=== PATIENT | female | born 1980 | race African-American/Black ===

== ENCOUNTER → 2016-09-02 | Outpatient (CLI) | payer OTHER ==
[~2016-09-02] MED LIST: ALBUTEROL17 GM INH; ALLERGY RELIEF10 M6 PO; AZELASTINE205.5 MCG/ INH; BENADRYL ALLERG25 M1 PO; EPIPEN JR0.15 MG/01 INJ; NORVASC PO; SERTRALINE HCL100 M1 PO; ZESTORETIC 10-1 EAC1
--- NOTE | ~2016-09-02 | CR63 ---
[facility] A Service of [facility] & [facility] RADIOLOGY TEXT RESULTS PATIENT: SEAN BROWNLEE LOCATION: [facility] : 78 UNIT #: [id number] AGE: [address]: Barry Martínez III, MD SEX: F ORDER DR: [id number] [facility] [address]. [place], [place] [address] [id number] O MR#: [id number] Acc #: [id number] NAME: SEAN BROWNLEE : 1980 SEX: F STUDY DATE/TIME: 09/02/2016 9:01 UNIT: [facility] ROOM: STUDY DESCRIPTION: CR Chest 2 View Attending Physician: Barry Martínez III, M.D. Referring Physician: Barry Martínez III, M.D. Ordering Physician: Barry Martínez III, M.D. Primary Care Physician: Generic Doctor Not In System MEDICAL IMAGING REPORT This report is preliminary unless electronic signature is present EXAM Chest, 09/02/2016 HISTORY 35-year-old woman preop clearance for laparoscopic adjustable gastric band placement and possible periesophageal hernia repair. Morbid obesity. COMPARISON None FINDINGS Two-view chest demonstrates normal cardiac size and configuration. Hilar structures and mediastinal contours are preserved. Bilateral lungs are expanded and clear. Large body habitus noted. IMPRESSION Negative chest. Large body habitus. Dictated by... Jagjit Sanchez M.D. THIS IS AN ELECTRONICALLY VERIFIED REPORT Jagjit Sanchez M.D. at 09/02/2016 12:01 PM Pilo TD: 09/02/2016 11:16 JOB #: [id number] MEDICAL IMAGING REPORT Page 1 of 1 COPY
--- NOTE | ~2016-09-02 | EKG ---
PATIENT: SEAN BROWNLEE UNIT #: [id number] Ventricular Rate: 74 BPM Atrial Rate: 74 BPM P-R Interval: 120 ms QRS Duration: 74 ms Q-T Interval: 388 ms QTC Calculation(Bezet): 430 ms P [place]: 11 degrees Calculated R [place]: 37 degrees Calculated T [place]: 12 degrees Diagnosis Line: Normal sinus rhythm Diagnosis Line: Normal ECG Diagnosis Line: No previous ECGs available Diagnosis Line: Confirmed by CINDY CARRERO MD ([id number]) on Diagnosis Line: 09/04/2016 11:13:59 PM INTERPRETING MD: MAGAN FRANZ
--- NOTE | ~2016-09-02 | CR97 ---
[facility] A Service of [facility] & [facility] RADIOLOGY TEXT RESULTS PATIENT: SEAN BROWNLEE LOCATION: [facility] : 78 UNIT #: [id number] AGE: [address]: Barry Martínez III, MD SEX: F ORDER DR: [id number] [facility] [address] [place], [place] [address] [id number] O MR#: [id number] Acc #: [id number] NAME: SEAN BROWNLEE : 1980 SEX: F STUDY DATE/TIME: 09/02/2016 9:11 UNIT: [facility] ROOM: STUDY DESCRIPTION: CR Esophagram Attending Physician: Barry Martínez III, M.D. Referring Physician: Barry Martínez III, M.D. Ordering Physician: Barry Martínez III, M.D. Primary Care Physician: Generic Doctor Not In System MEDICAL IMAGING REPORT This report is preliminary unless electronic signature is present EXAM Barium esophagram. INDICATIONS Morbid obesity. Preop for Lap-Band surgery. FLUOROSCOPY The fluoro time 0.3 minutes. 6 images were submitted. FINDINGS Thoracic esophagus is normal in course and caliber. There is a tiny sliding hiatal hernia. IMPRESSION Tiny sliding hiatal hernia; otherwise unremarkable. Dictated by... Alex Morales M.D. THIS IS AN ELECTRONICALLY VERIFIED REPORT Alex Morales M.D. at 09/05/2016 7:25 AM NIEVES/rena TD: 09/02/2016 17:06 JOB #: [id number] MEDICAL IMAGING REPORT Page 1 of 1 COPY
[2016-09-02 09:52] LABS: HEMATOCRIT 38.3 % (35.0-45.0); HEMOGLOBIN 12.3 gm/dL (12.0-16.0); MEAN CORPUSCULAR HEMOGLOBIN 25.5 PG (28-34); MEAN CORPUSCULAR HGB CONC 32.2 g/dL (30-36); RED BLOOD COUNT 4.85 X10e (3.90-5.30); RED CELL DISTRIBUTION WIDTH 14.7 % (11.0-15.5); WHITE BLOOD COUNT 8.6 X10e3 (4.0-10.5)
[2016-09-02 10:57] LABS: ALBUMIN SERUM 3.6 g/dL (3.5-5.0); BILIRUBIN,TOTAL 0.4 mg/dL (0.2-2.0); CALCIUM SERUM 8.7 mg/dL (8.4-10.2); CREATININE SERUM 0.9 mg/dL (0.6-1.4); GLOM FILT RATE Estimated 95.4 mL/min (>60); PROTEIN TOTAL SERUM 6.9 g/dL (6.0-8.3)
== END | disposition home or self-care (01) ==
LOC: CRAD 08:46 → CAMB 10:00
PROVIDERS: Surgery
DX: Z01.818 Encounter for other preprocedural examination (principal)
CPT/HCPCS: 36415; 71020; 74220; 80053; 80061; 84443; 85027; 93005

== ENCOUNTER → 2016-09-14 | Day surgery (SDC) | payer OTHER ==
--- NOTE | ~2016-09-14 | CR7 ---
[facility] A Service of [facility] RADIOLOGY TEXT RESULTS PATIENT: SEAN BROWNLEE LOCATION: [facility] : 78 UNIT #: [id number] AGE: [address]: Barry Martínez III, MD SEX: F ORDER DR: [id number] [place] [id number] [facility]. [place], [place] [address] [id number] O MR#: [id number] Acc #: [id number] NAME: SEAN BROWNLEE : 1980 SEX: F STUDY DATE/TIME: 09/14/2016 12:50 UNIT: [facility] ROOM: STUDY DESCRIPTION: CR Abdomen Single AP View Attending Physician: Barry Martínez III, M.D. Ordering Physician: Barry Martínez III, M.D. Primary Care Physician: Joanna Not Listed MEDICAL IMAGING REPORT This report is preliminary unless electronic signature is present EXAM Frontal abdomen, 09/14/2016. INDICATION 35-year-old female status post Lap-Band placement. Morbid obesity, dyspnea with activity. Symptoms began today. TECHNIQUE Frontal abdomen was performed. COMPARISON There are no comparison studies. FINDINGS Lap-Band present. Phi angle approximate 77 degrees. Correlate with desired level positioning. No air-fluid level proximal to the band identified. Extension tubing noted. Bowel gas pattern nonspecific but nonobstructive. IMPRESSION Status post Lap-Band placement. Phi angle approximately 77 degrees. Dictated by... Ed Mejía M.D. THIS IS AN ELECTRONICALLY VERIFIED REPORT Ed Mejía M.D. at 09/15/2016 9:32 AM GRACIELA/shannan TD: 09/14/2016 14:39 JOB #: [id number] [facility] A Service [facility] RADIOLOGY TEXT RESULTS PATIENT: SEAN BROWNLEE LOCATION: [facility] : 78 UNIT #: [id number] AGE: [address]: Barry Martínez III, MD SEX: F ORDER DR: MEDICAL IMAGING REPORT Page 1 of 1 COPY
--- NOTE | ~2016-09-14 | OR ---
Unit #: [id number] #: [id number] Patient: SEAN BROWNLEE [id number] [facility] [address] [place], [place] [address] [id number] O MR#: [id number] NAME: SEAN BROWNLEE ROOM: Date of Procedure: 09/14/2016 Admission Date: 09/14/2016 Surgeon: Barry Martínez III, M.D. : 1980 Attending Physician: Barry Martínez III, M.D. OPERATIVE REPORT PREOPERATIVE DIAGNOSIS Chronic morbid obesity. POSTOPERATIVE DIAGNOSIS Chronic morbid obesity. SECONDARY DIAGNOSIS Anterior paraesophageal hernia. PROCEDURES PERFORMED Laparoscopic adjustable gastric banding (AP standard with low-profile port) and laparoscopic paraesophageal hernia repair. 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 SPECIMENS None. COMPLICATIONS None apparent. ESTIMATED BLOOD LOSS Minimal. ANESTHESIA General endotracheal tube anesthesia. INDICATIONS FOR PROCEDURE This is a 35-year-old lady, who has chronic morbid obesity with a BMI of 47 and associated comorbidities of hypertension. She has been through the bariatric program at [facility] and understands the risks and benefits of the procedure. DESCRIPTION OF PROCEDURE After consent was obtained, including the risks and benefits of slippage, erosion, port dysfunction, and possible failure of weight loss due to noncompliance, the patient was taken to the operating room and placed in the supine position. General anesthetic was administered and the abdomen was prepped and draped in standard surgical fashion. I began by making a 2 cm incision just above and to the left of the Unit #: [id number] #: [id number] Patient: SEAN BROWNLEE umbilicus. I used a Visiport to enter the peritoneal cavity without any difficulty. C02 pneumoperitoneum was then established. Next, I placed a 5 mm port in the right upper quadrant, a 5 mm Brianna liver retractor in the subxiphoid region to provide exposure of the gastroesophageal junction. Next, a 10 mm port was placed in the left upper quadrant and a 5 mm port was placed in the left lateral subcostal region. I began by performing an examination of the GE junction to evaluate for a hiatal hernia. We then scored the peritoneal attachments overlying the angle of His. I then opened up the clear space in the gastrohepatic ligament, and then using 2 blunt graspers, I identified the small fat pad crossing over the right crura. I swept the fat anterior to the crura off the crura and using the pars flaccida, I created a retrogastric tunnel where the blunt grasper exited at the angle of His. Once I had made this tunnel safely, I then inserted an Allergan AP band into the abdominal cavity. This adjustable gastric band was then place around the upper part of the stomach and fastened and buckled anteriorly. We then tacked the lateral fundus over the band to the proximal pouch with 2 interrupted 0 Ethibond sutures. I then used a third stitch to imbricate the excess anterior stomach by going from the lesser curvature up towards where the last stitch was placed. We then had excellent hemostasis. I removed the Brianna liver retractor. We then removed the port tubing through the initial port incision. The rest of the ports were removed, and the pneumoperitoneum was released. I then left a small tail on the tubing. We then attached the port to the excess band tubing. We placed a piece of Prolene mesh along the back side of the port and used a Prolene stitch to anchor this mesh in place. We then trimmed the excess mesh so that just a small footprint of mesh was in place behind the port. I then inserted the tubing back into the abdominal cavity, and we placed the port into a small pocket that was made just inferior to where our initial port incision was made. The mesh was in direct contact with the fascia, and this will scar in place to hold the port in place. We then injected all the port sites with 0.25% plain Marcaine, and I reapproximated the skin edges with interrupted 4-0 Vicryl subcuticular sutures. Steri-strips were then applied. The patient tolerated the procedure without any problems and returned to the recovery room in stable condition. ADDENDUM After exposure of the GE junction, the patient was noted to have a small to medium size anterior paraesophageal hernia. I scored the phrenoesophageal ligament, reduced the hernia defect including the hernia sac and after identifying both the right and left crura, reapproximated the defect with an interrupted 0 Ethibond [id number] suture. I then proceeded with the case as listed above. Dictated by... Barry Martínez III, M.D. VCL/morenita TD: 09/15/2016 00:38 JOB #: [id number] CC: Rafi Viera II, M.D. Unit #: [id number] #: [id number] Patient: SEAN BROWNLEE OPERATIVE REPORT Page 1 of 1 X Barry Martínez III, MD PROCEDURE OPERATIVE NOTE
== END | disposition home or self-care (01) ==
LOC: CSUR 08:44
DX: E66.01 Morbid (severe) obesity due to excess calories (principal); K44.9 Diaphragmatic hernia without obstruction or gangrene; I10 Essential (primary) hypertension; J45.909 Unspecified asthma, uncomplicated; F41.8 Other specified anxiety disorders; G43.909 Migraine, unspecified, not intractable, without status migrainosus; Z68.42 Body mass index [BMI] 45.0-49.9, adult; Z91.030 Bee allergy status; Z88.8 Allergy status to other drugs, medicaments and biological substances; Z88.2 Allergy status to sulfonamides; Z79.899 Other long term (current) drug therapy; Z98.51 Tubal ligation status; Z90.710 Acquired absence of both cervix and uterus
CPT/HCPCS: 74000; C1781; J0330; J0690; J1650; J1885; J2250; J2405; J2710; J3010